=== PATIENT | male | born 1975 | race Caucasian/White ===

== ENCOUNTER 2020-10-03 09:34 | Emergency (ER) | payer MEDICARE, OTHER ==
[~2020-10-03] VITALS: Ht 193 cm; Wt 83.9 kg
[2020-10-03] MEDS ORDERED: LIDOCAINE 1%-EPI 1:100,000 20 ML VIAL ONE (10:01)
[2020-10-03] MEDS: LIDOCAINE 1%-EPI 1:100,000 20 ML VIAL IJ ONE (10:02)
--- NOTE | 2020-10-03 10:24 | NUR ---
Patient discharged to home in stable condition. Written and verbal after care instructions given. Patient verbalizes understanding of instructions. Stressed follow up or return to ER for worsening s/s.
== END 2020-10-03 10:25 | disposition home or self-care (01) ==
LOC: ER 09:34
DX: K61.1 Rectal abscess (principal)
CPT/HCPCS: A4217; A4663; J3490